=== PATIENT | female | born 1990 | race Caucasian/White ===

== ENCOUNTER 2016-09-04 13:40 | Emergency (ER) | payer SELFPAY ==
[2016-09-04 14:31] VITALS: BMI 30.8
[2016-09-04 14:40] VITALS: O2SAT 100
--- NOTE | 2016-09-04 16:40 | C.PDOC ---
History Of Present Illness 26 year old female with Hx of heavy menses who presents to the ER for a complaint of vaginal bleeding over the past month. Patient has needed estrogen therapy in the past due to her heavy menstruation. Patient reports she did not having her menstrual period for 3 months until this past month when she began bleeding and has continued every day. Denies nausea, vomiting, chest pain, SOB , headache, dysuria, or hematuria. Time Seen by Provider: 09/04/16 16:22 Chief Complaint (Nursing): Female Genitourinary History Per: Patient History/Exam Limitations: no limitations Onset/Duration Of Symptoms: Days (1 month) Current Symptoms Are (Timing): Still Present Associated Symptoms: denies: Nausea, Vomiting, Chest Pain, Urinary Symptoms Alleviating Factors: None Recent travel outside of the [place]: No Abnormal Vaginal Bleeding: Yes Past Medical History Reviewed: Historical Data, Nursing Documentation, Vital Signs Vital Signs: Last Vital Signs Temp 98.2 F 09/04/16 17:38 Pulse 76 09/04/16 17:38 Resp 20 09/04/16 17:38 BP 100/64 09/04/16 17:38 Pulse Ox 100 09/04/16 17:38 - Medical History PMH: No Chronic Diseases Surgical History: No Surg Hx Family History: States: Unknown Family Hx - Social History Hx Alcohol Use: No Hx Substance Use: No - Immunization History Hx Tetanus Toxoid Vaccination: No Hx Influenza Vaccination: No Hx Pneumococcal Vaccination: No Review Of Systems Constitutional: Negative for: Fever, Chills Cardiovascular: Negative for: Chest Pain, Palpitations, Orthopnea, Edema, Light Headedness Respiratory: Negative for: Cough, Shortness of Breath, Hemoptysis, SOB with Excertion Gastrointestinal: Negative for: Nausea, Vomiting, Abdominal Pain Genitourinary: Positive for: Vaginal Bleeding. Negative for: Dysuria, Hematuria Musculoskeletal: Negative for: Back Pain Physical Exam - Physical Exam Appears: Well, Non-toxic, No Acute Distress Skin: Normal Color, Warm, Dry Head: Atraumatic, Normacephalic Eye(s): bilateral: Normal Inspection, PERRL, EOMI Oral Mucosa: Moist Chest: Symmetrical, No Tenderness Cardiovascular: Rhythm Regular, No Murmur Respiratory: Normal Breath Sounds, No Rales, No Rhonchi, No Wheezing Gastrointestinal/Abdominal: Soft, No Tenderness, No Mass, No Distention Back: Normal Inspection, No CVA Tenderness Extremity: Normal ROM Neurological/Psych: Oriented x3, Normal Speech, Normal Cognition ED Course And Treatment - Laboratory Results Result Diagrams: 09/04/16 16:41 09/04/16 16:41 O2 Sat by Pulse Oximetry: 100 (Room air) Pulse Ox Interpretation: Normal Medical Decision Making Medical Decision Making: Blood work and POC preg ordered. 5:24PM Patient is not . Hgb:9 with low MCV. Patient does not need blood transfusion and has had symptoms x 1 month. She has previous history of similar episodes. She is hemodynamically stable. She was given outpatient ob gyn physician assistant referral. Patient instructed to follow-up with ob gyn physician assistant and get iron studies Disposition - Disposition Referrals: Maximo Barbosa MD [Staff Provider] - Disposition: HOME/ ROUTINE Disposition Time: 17:24 Condition: GOOD Additional Instructions: Follow up with reinforcement maker for heavy menses. Return to ED if condition worsens. Instructions: Menorrhagia (ED), Anemia (ED) - Clinical Impression Clinical Impression: Menorrhagia, Microcytic anemia - Scribe Statement The provider has reviewed the documentation as recorded by the Scribrhianna Dolan All medical record entries made by the Scribe were at my direction and personally dictated by me. I have reviewed the chart and agree that the record accurately reflects my personal performance of the history, physical exam, medical decision making, and the department course for this patient. I have also personally directed, reviewed, and agree with the discharge instructions and disposition.
[2016-09-04 16:50] LABS: BASO # 0.1 K/uL (0.0-0.2); BASO % 0.8 % (0.0-2.0); EOS # 0.2 K/uL (0.0-0.7); EOS % 2.4 % (0.0-4.0); LYMPH # 3.3 K/uL (1.0-4.3); MEAN CORPUSCULAR HEMOGLOBIN 18.7 pg (27.0-31.0); MEAN CORPUSCULAR HGB CONC 30.3 g/dL (33.0-37.0); MEAN PLATELET VOLUME 9.1 fL (7.2-11.7); MONO # 0.9 K/uL (0.0-0.8); NEUT # 4.1 K/uL (1.8-7.0); NEUT % 47.8 % (50.0-75.0); NRBC % 0.1 % (0.0-2.0); RBC 4.79 Mil/uL (3.80-5.20); RED CELL DISTRIBUTION WIDTH 19.8 % (11.5-14.5); WHITE BLOOD COUNT 8.5 K/uL (4.8-10.8)
[2016-09-04 16:58] LABS: MEAN CELL VOLUME 61.8 fL (81.0-99.0)
[2016-09-04 17:00] LABS: ALBUMIN 4.1 g/dL (3.5-5.0)
[2016-09-04 17:03] LABS: ALB/GLOB RATIO 1.1 (1.0-2.1); AST/SGOT 24 U/L (14-36); BLOOD UREA NITROGEN 9 mg/dL (7-17); GFR AFRICAN-AMERICAN > 60; GFR NON-AFRICAN AMERICAN > 60
[2016-09-04 17:04] LABS: ALT/SGPT 33 U/L (9-52); CALCIUM 9.2 mg/dl (8.6-10.4)
[2016-09-04 17:39] VITALS: BP 100/64; PULSE 76; RESP 20; TEMP 98.2
== END 2016-09-04 17:45 | disposition home or self-care (01) ==
LOC: C.ER 13:40
DX: N92.0 Excessive and frequent menstruation with regular cycle (principal); D50.9 Iron deficiency anemia, unspecified

== ENCOUNTER 2016-09-05 11:31 | Emergency (ER) | payer SELFPAY ==
[2016-09-05 11:31] VITALS: BMI 30.8
[2016-09-05 12:09] VITALS: O2SAT 100
[2016-09-05 12:27] LABS: HCG,QUALITATIVE URINE NEGATIVE (NEGATIVE)
[2016-09-05 12:30] LABS: SQUAMOUS EPITHIAL 1 /hpf (0-5); URINE BILIRUBIN NEGATIVE (NEGATIVE); URINE BLOOD 3+ (NEGATIVE); URINE CLARITY Clear (Clear); URINE COLOR Yellow (YELLOW); URINE GLUCOSE (UA) NORMAL (Normal); URINE LEUKOCYTE ESTERASE NEG Leu/uL (Negative); URINE NITRATE NEGATIVE (NEGATIVE); URINE PROTEIN NEGATIVE (NEGATIVE); URINE UROBILINOGEN NORMAL mg/dL (0.2-1.0)
[2016-09-05 12:42] LABS: BASO # 0.1 K/uL (0.0-0.2); BASO % 0.9 % (0.0-2.0); EOS # 0.2 K/uL (0.0-0.7); EOS % 2.9 % (0.0-4.0); HEMOGLOBIN 8.3 g/dL (11.0-16.0); LYMPH % 39.1 % (20.0-40.0); MEAN CELL VOLUME 61.4 fL (81.0-99.0); MEAN CORPUSCULAR HEMOGLOBIN 18.7 pg (27.0-31.0); MEAN CORPUSCULAR HGB CONC 30.5 g/dL (33.0-37.0); MEAN PLATELET VOLUME 8.9 fL (7.2-11.7); MONO # 0.8 K/uL (0.0-0.8); MONO % 10.9 % (0.0-10.0); NEUT # 3.6 K/uL (1.8-7.0); NEUT % 46.2 % (50.0-75.0); NRBC % 0.2 % (0.0-2.0); RBC 4.43 Mil/uL (3.80-5.20); RED CELL DISTRIBUTION WIDTH 19.1 % (11.5-14.5); WHITE BLOOD COUNT 7.7 K/uL (4.8-10.8)
[2016-09-05 12:49] LABS: ALBUMIN 3.8 g/dL (3.5-5.0); PROTHROMBIN TIME 11.5 SECONDS (9.7-12.2)
[2016-09-05 12:51] LABS: GFR AFRICAN-AMERICAN > 60; GFR NON-AFRICAN AMERICAN > 60
[2016-09-05 12:52] LABS: ALB/GLOB RATIO 1.1 (1.0-2.1); ALT/SGPT 31 U/L (9-52); AST/SGOT 22 U/L (14-36); BLOOD UREA NITROGEN 7 mg/dL (7-17)
[2016-09-05] MEDS ORDERED: Sodium Chloride 0.9% 1,000 ML IV ONE (12:52)
[2016-09-05 12:53] LABS: CALCIUM 8.8 mg/dl (8.6-10.4)
--- NOTE | 2016-09-05 15:02 | US ---
PROCEDURE: HISTORY: PELVIC PAIN, VAGINAL BLEEDING; LMP not provided or not known . Negative beta HCG COMPARISON: None TECHNIQUE: Trans abdominal transvaginal technique acute FINDINGS: The uterus is retroflexed. The uterus measures 7.4 x 4.6 x 5.1 cm. Although a thickened appearance is not uncommon in patients of this age, along the more inferior aspect of the visualized endometrium/ lower uterine segment there is much smaller caliber endometrium suggested. The appearance of the upper uterine segment/fundal endometrium therefore could represent not only benign hyperplastic changes of but also on polypoid changes. Other etiologies are not excluded in pathology this patient with vaginal bleeding for 1 month. The endometrium is lobulated at 1.4 cm. The right ovary measures 5.1 x 2.9 x 3.7 cm. A right ovarian cyst measuring 2.3 x 1.8 x 1.6 cm is noted. Re- measures 5.1 x 3.2 x 4.3 cm. The ovarian cyst measuring 3.6 x 2.8 x 3.4 cm is noted. Cervix is unremarkable No free fluid IMPRESSION: Retroflexed uterus with a thickened lobulated endometrium - at fundal level as noted above. Consider rechecking endometrial thickness with transvaginal technique in 4-6 weeks . Differential considerations are as noted above Bilateral benign-appearing ovarian cysts likely physiologic
--- NOTE | 2016-09-05 15:41 | C.PDOC ---
History Of Present Illness 26-year-old female presents to the emergency department with complaints of vaginal bleeding x1 month, has been present since her last menstrual period. Patient states she uses 7-8 pads daily. Additionally, patient [place]BGYN here. She currently c/o feeling weak. Patient denies chest pain, shortness of breath, nausea/vomiting, dizziness, headache. Time Seen by Provider: 09/05/16 11:53 Chief Complaint (Nursing): Female Genitourinary History Per: Patient History/Exam Limitations: no limitations Onset/Duration Of Symptoms: Days Current Symptoms Are (Timing): Still Present Severity: Moderate Past Medical History Reviewed: Historical Data, Nursing Documentation, Vital Signs Vital Signs: Last Vital Signs Temp 98.1 F 09/05/16 16:00 Pulse 73 09/05/16 16:00 Resp 18 09/05/16 16:00 BP 100/66 09/05/16 16:00 Pulse Ox 100 09/15/16 14:06 - Medical History PMH: No Chronic Diseases Family History: States: No Known Family Hx - Social History Hx Alcohol Use: No Hx Substance Use: No - Immunization History Hx Tetanus Toxoid Vaccination: No Hx Influenza Vaccination: No Hx Pneumococcal Vaccination: No Review Of Systems Except As Marked, All Systems Reviewed And Found Negative. Constitutional: Positive for: Weakness. Negative for: Fever, Chills Cardiovascular: Negative for: Chest Pain, Palpitations Respiratory: Negative for: Cough, Shortness of Breath Gastrointestinal: Negative for: Nausea, Vomiting Genitourinary: Positive for: Vaginal Bleeding Neurological: Negative for: Headache, Dizziness Physical Exam - Physical Exam Appears: Well, Non-toxic, No Acute Distress Skin: Warm, Dry, No Rash Head: Normacephalic Eye(s): bilateral: Normal Inspection Oral Mucosa: Moist Cardiovascular: Rhythm Regular Respiratory: Normal Breath Sounds, No Rales, No Rhonchi, No Wheezing Gastrointestinal/Abdominal: Bowel Sounds, Soft, Tenderness (mild, suprapubic TTP ), No Guarding, No Rebound Extremity: Normal ROM Neurological/Psych: Oriented x3 ED Course And Treatment - Laboratory Results Result Diagrams: 09/05/16 12:35 09/05/16 12:35 O2 Sat by Pulse Oximetry: 100 (RA) Pulse Ox Interpretation: Normal - CT Scan/US Transvaginal US Other Rad Studies (CT/US): Read By Radiologist, Radiology Report Reviewed CT/US Interpretation: Accession No. : [id number]. Patient Name / ID : MACY HORVATH / [id number]. Exam Date : 09/05/2016 14:02:16 ( Approved ). Study Comment : Sex / Age : F / [id number]. Creator : Kenna Santana V. Dictator : Kenna Santana V. Aircraft Fueler : Welder Tack : Kenna Santana V. Approver2 : Report Date : 2016 14:59:47. My Comment : . PROCEDURE: HISTORY: PELVIC PAIN, VAGINAL BLEEDING; LMP not provided or not known . Negative beta HCG. COMPARISON: None. TECHNIQUE: Trans abdominal transvaginal technique acute. FINDINGS: The uterus is retroflexed. The uterus measures 7.4 x 4.6 x 5.1 cm. Although a thickened appearance is not uncommon in patients of this age, along the more inferior aspect of the visualized endometrium/ lower uterine segment there is much smaller caliber endometrium suggested. The appearance of the upper uterine segment/fundal endometrium therefore could represent not only benign hyperplastic changes of but also on polypoid changes. Other etiologies are not excluded in pathology this patient with vaginal bleeding for 1 month. The endometrium is lobulated at 1.4 cm. The right ovary measures 5.1 x 2.9 x 3.7 cm. A right ovarian cyst measuring 2.3 x 1.8 x 1.6 cm is noted. Re- measures 5.1 x 3.2 x 4.3 cm. The ovarian cyst measuring 3.6 x 2.8 x 3.4 cm is noted. Cervix is unremarkable. No free fluid. IMPRESSION: Retroflexed uterus with a thickened lobulated endometrium - at fundal level as noted above. Consider rechecking endometrial thickness with transvaginal technique in 4-6 weeks . Differential considerations are as noted above. Bilateral benign-appearing ovarian cysts likely physiologic Progress Note: Patient seen in ED yesterday for same complaint. Blood work & transvaginal US ordered and reviewed, and patient given IV NS bolus. Hgb 9.0 yesterday, and today is 8.3. Reevaluation Time: 16:50 Reassessment Condition: Improved (Patient reassessed, is resting comfortably and states she feels better. She is well appearing, with normal vitals. She was given Rxs for iron and Aygestin, and instructed to follow up with [facility] within 1 week without fail. She understands she should return to ED if she has worsening symptoms.) - Physician Consult Information Physician Contacted: Rah Brown Outcome Of Conversation: Discussed patient with environmental health aide channel lip wetter, recommends PO iron and Aygestin Rxs, then follow up in [facility]. Disposition Counseled Patient/Family Regarding: Studies Performed, Diagnosis, Need For Followup, Rx Given - Disposition Referrals: [facility] [Outside] Disposition: HOME/ ROUTINE Disposition Time: 16:50 Condition: STABLE Additional Instructions: YOU NEED TO FOLLOW UP WITH [facility] AT [facility]ICAL CL[facility]IC WITHIN 1 WEEK USE MEDICATIONS DIRECTED RETURN TO ER IF SYMPTOMS WORSEN Prescriptions: Ferrous Sulfate [Ferosul] 325 mg PO DAILY #30 tablet Norethindrone Acetate [Aygestin] 5 mg PO BID #30 tablet Instructions: Menorrhagia (ED) Print Language: CITIZEN OF [place] - POA Present On Arrival: None - Clinical Impression Clinical Impression: Menorrhagia, Anemia - Scribe Statement The provider has reviewed the documentation as recorded by the Scribe (Silver Muller) All medical record entries made by the Scribe were at my direction and personally dictated by me. I have reviewed the chart and agree that the record accurately reflects my personal performance of the history, physical exam, medical decision making, and the department course for this patient. I have also personally directed, reviewed, and agree with the discharge instructions and disposition.
[2016-09-05 16:01] VITALS: BP 100/66; PULSE 73; RESP 18; TEMP 98.1
== END 2016-09-05 17:19 | disposition home or self-care (01) ==
LOC: C.ER 11:31
DX: N92.0 Excessive and frequent menstruation with regular cycle (principal); D64.9 Anemia, unspecified
CPT/HCPCS: 76830; 76856; 80053; 81001; 84703; 85025; 85610; 85730; 86850; 86900; 96360; 99285; J7040